=== PATIENT | male | born 1980 | race Two or more races ===

== ENCOUNTER 2021-04-02 15:38 | Inpatient (IN) | payer MEDICAID ==
[~2021-04-02] VITALS: Ht 177.8 cm; Wt 92.4 kg
[~2021-04-02 15:38] MED LIST: ADAL40PE SC; MAGN400T50 PO; PANT20TA2 PO; PANT40TA6 PO
[2021-04-02] MEDS ORDERED: POTA99TA24 PO (16:02)
--- NOTE | 2021-04-02 16:02 | NUR ---
BIB [facility], TRANSFER FROM [facility], SEPTIC SHOCK. HX GI CANCER, COLITIS. PT GOT 2GM MAG, 2L NS, PROTONIX, ZOFRAN, ABX, K AT [place]. PT A&O X 4. NAD. STARTING 2 DAYS AGO. AT BEDSIDE. PT IN BED WITH CONT SPO2, BP Q 30 MIN, SIDE RIALS UP X2, CALL LIGHT IN REACH. PT AGRES TO PLAN OF CARE.
--- NOTE | 2021-04-02 16:14 | NUR ---
LAB IN ROOM PT TO IR
[2021-04-02] MEDS ORDERED: LIDOCAINE 1%, 10ML ONE (16:26)
[2021-04-02] MEDS ORDERED: SODIUM CHLORIDE 0.9% 1,000ML IVBOLUS ONE (16:30)
[2021-04-02 16:41] LABS: MICROSCOPIC INDICATED
[2021-04-02 16:41] LABS: BASOPHILS % (AUTO) 1 % (0-1); EOSINOPHILS % (AUTO) 1 % (1-7); LYMPHOCYTES % (AUTO) 7 % (22-44); MEAN CORPUSCULAR HEMOGLOBIN 33.4 pg (27.5-34.5); MEAN CORPUSCULAR HGB CONC 33.6 g/dL (33.2-36.2); MEAN PLATELET VOLUME 8.1 fL (7.4-10.4); MONOCYTES % (AUTO) 4 % (2-9); NEUTROPHILS % (AUTO) 87 % (42-75); PLATELET COUNT 185 x10^3/uL (130-400); RED BLOOD COUNT 2.46 x10^6/uL (4.38-5.82); RED CELL DISTRIBUTION WIDTH 16.8 % (9.4-14.8)
[2021-04-02 16:43] LABS: ALANINE AMINOTRANSFERASE 24 U/L (12-78); ALBUMIN 1.9 g/dL (3.4-5.0); ANION GAP 8 mmol/L (5-15); CHLORIDE 106 mmol/L (98-107)
[2021-04-02 16:46] LABS: ALKALINE PHOSPHATASE 141 U/L (45-117); BILIRUBIN,TOTAL 4.6 mg/dL (0.2-1.0); CREATININE 0.61 mg/dL (0.7-1.3); TOTAL PROTEIN 7.3 g/dL (6.4-8.2)
--- NOTE | 2021-04-02 16:53 | NUR ---
PT BACK FROM IR
--- NOTE | 2021-04-02 17:36 | NUR ---
Pt ambulated to the restroom with steady gait.
[2021-04-02] MEDS ORDERED: POTASSIUM CHLORIDE 40 MEQ in SODIUM CHLORIDE 0.9% 500 ML IV ONE (18:30)
[2021-04-02] MEDS ORDERED: MELATONIN 5 MG TABLET PO PRN (19:30)
[2021-04-02] MEDS ORDERED: LABETALOL 5MG/ML, 20ML IVPush PRN (19:30)
[2021-04-02] MEDS ORDERED: OXYcodone IR 5MG TABLET PO PRN (19:30)
[2021-04-02] MEDS ORDERED: ONDANSETRON 2MG/ML, 2ML IVPush PRN (19:30)
[2021-04-02] MEDS ORDERED: morphine SULFATE 10 MG/ML, 1ML IVPush PRN (19:30)
[2021-04-02] MEDS ORDERED: ACETAMINOPHEN 325 MG TABLET PO PRN (19:30)
[2021-04-02] MEDS ORDERED: POTASSIUM CHLORIDE 40 MEQ in LACTATED RINGERS 1,000 ML IV SCH (20:00)
[2021-04-02] MEDS ORDERED: PANTOPRAZOLE 40 MG IV ONE (21:01)
[2021-04-02] MEDS ORDERED: CIPROFLOXACIN 500 MG TABLET ONE (21:01)
[2021-04-02] MEDS ORDERED: metroNIDAZOLE 500 MG TABLET ONE (21:01)
[2021-04-02] MEDS: PANTOPRAZOLE 40 MG IV IVPush SCH (21:10)
[2021-04-02] MEDS: CIPROFLOXACIN 500 MG TABLET PO SCH (21:10)
[2021-04-02] MEDS: metroNIDAZOLE 500 MG TABLET PO SCH (21:10)
--- NOTE | 2021-04-02 21:13 | NUR ---
PT AMBULATED WITH STEADY GATE TO BR
--- NOTE | 2021-04-02 21:44 | NUR ---
CLARIFIED WITH DR. HILLIARD ON MEDICAL UNIT ADMIT WITH 2.7K+, OKAY TO ADMIT TO MEDICAL PER .
[2021-04-03 00:10] VITALS: BP 131/80
[2021-04-03] MEDS: metroNIDAZOLE 500 MG TABLET PO SCH ×3 (03:31→23:17)
[2021-04-03 06:50] VITALS: BP 121/71
[2021-04-03 08:03] LABS: OCCULT BLOOD NEGATIVE (NEGATIVE)
[2021-04-03 09:15] LABS: CLOSTRIDIUM DIFFICILE ANTIGEN NEGATIVE; CLOSTRIDIUM DIFFICILE TOXIN NEGATIVE (Negative)
[2021-04-03] MEDS: MULTIVITAMINS/MINERALS TABLET PO SCH (09:36)
[2021-04-03] MEDS: PANTOPRAZOLE 40 MG IV IVPush SCH ×2 (09:36→21:53)
[2021-04-03] MEDS: CIPROFLOXACIN 500 MG TABLET PO SCH ×2 (09:36→21:52)
[2021-04-03 10:22] LABS: CHLORIDE 107 mmol/L (98-107)
[2021-04-03 10:25] LABS: BASOPHILS % (AUTO) 1 % (0-1); EOSINOPHILS % (AUTO) 2 % (1-7); LYMPHOCYTES % (AUTO) 6 % (22-44); MEAN CORPUSCULAR HEMOGLOBIN 33.7 pg (27.5-34.5); MEAN CORPUSCULAR HGB CONC 33.4 g/dL (33.2-36.2); MEAN PLATELET VOLUME 8.3 fL (7.4-10.4); MONOCYTES % (AUTO) 5 % (2-9); NEUTROPHILS % (AUTO) 87 % (42-75); PLATELET COUNT 194 x10^3/uL (130-400); RED BLOOD COUNT 2.64 x10^6/uL (4.38-5.82); RED CELL DISTRIBUTION WIDTH 16.8 % (9.4-14.8)
[2021-04-03 10:30] LABS: ALANINE AMINOTRANSFERASE 21 U/L (12-78); ALBUMIN 1.7 g/dL (3.4-5.0); ALKALINE PHOSPHATASE 133 U/L (45-117); ANION GAP 8 mmol/L (5-15); BILIRUBIN,TOTAL 3.8 mg/dL (0.2-1.0); CALCIUM 7.4 mg/dL (8.5-10.1); CREATININE 0.83 mg/dL (0.7-1.3); TOTAL PROTEIN 7.1 g/dL (6.4-8.2)
[2021-04-03 13:32] VITALS: BP 129/76
[2021-04-03] MEDS: SPIRONOLACTONE 100 MG TABLET PO SCH (17:43)
[2021-04-03 18:29] VITALS: BP 133/84
[2021-04-04 00:12] VITALS: BP 106/61
[2021-04-04 06:26] LABS: BASOPHILS % (AUTO) 1 % (0-1); CHLORIDE 107 mmol/L (98-107); EOSINOPHILS % (AUTO) 2 % (1-7); LYMPHOCYTES % (AUTO) 8 % (22-44); MEAN CORPUSCULAR HEMOGLOBIN 33.2 pg (27.5-34.5); MEAN PLATELET VOLUME 8.2 fL (7.4-10.4); MONOCYTES % (AUTO) 6 % (2-9); NEUTROPHILS % (AUTO) 83 % (42-75); PLATELET COUNT 157 x10^3/uL (130-400); RED CELL DISTRIBUTION WIDTH 16.5 % (9.4-14.8)
[2021-04-04 06:35] LABS: ALANINE AMINOTRANSFERASE 19 U/L (12-78); ALBUMIN 1.6 g/dL (3.4-5.0); ALKALINE PHOSPHATASE 111 U/L (45-117); ANION GAP 9 mmol/L (5-15); BILIRUBIN,TOTAL 3.5 mg/dL (0.2-1.0); CALCIUM 7.2 mg/dL (8.5-10.1); CREATININE 0.65 mg/dL (0.7-1.3); TOTAL PROTEIN 6.3 g/dL (6.4-8.2)
[2021-04-04 07:52] VITALS: BP 129/83
[2021-04-04] MEDS ORDERED: POTASSIUM CHLORIDE 40 MEQ in SODIUM CHLORIDE 0.9% 500 ML IV ONE (08:30)
[2021-04-04] MEDS ORDERED: MAGNESIUM SULFATE PMX 4GM/100M 100 ML IVPB ONE (09:00)
[2021-04-04] MEDS ORDERED: FUROSEMIDE 40 MG/4 ML IV SCH (09:00)
[2021-04-04] MEDS: SPIRONOLACTONE 100 MG TABLET PO SCH (09:02)
[2021-04-04] MEDS: MULTIVITAMINS/MINERALS TABLET PO SCH (09:02)
[2021-04-04] MEDS: CIPROFLOXACIN 500 MG TABLET PO SCH ×2 (09:02→20:34)
[2021-04-04] MEDS: PANTOPRAZOLE 40 MG IV IVPush SCH ×2 (09:03→20:34)
[2021-04-04] MEDS: POTASSIUM CHLORIDE 20 MEQ TAB.ER.PRT PO SCH ×2 (09:18→16:21)
[2021-04-04] MEDS: metroNIDAZOLE 500 MG TABLET PO SCH ×3 (09:19→22:58)
[2021-04-04 13:45] VITALS: BP 143/89
[2021-04-04 18:47] VITALS: BP 128/83
[2021-04-05 00:09] VITALS: BP 124/69
[2021-04-05 06:09] LABS: BASOPHILS % (AUTO) 1 % (0-1); EOSINOPHILS % (AUTO) 2 % (1-7); LYMPHOCYTES % (AUTO) 10 % (22-44); MEAN CORPUSCULAR HEMOGLOBIN 33.5 pg (27.5-34.5); MEAN CORPUSCULAR HGB CONC 33.2 g/dL (33.2-36.2); MEAN PLATELET VOLUME 7.8 fL (7.4-10.4); MONOCYTES % (AUTO) 6 % (2-9); NEUTROPHILS % (AUTO) 81 % (42-75); PLATELET COUNT 181 x10^3/uL (130-400); RED CELL DISTRIBUTION WIDTH 17.1 % (9.4-14.8)
[2021-04-05 06:20] LABS: ALANINE AMINOTRANSFERASE 22 U/L (12-78); ALBUMIN 1.7 g/dL (3.4-5.0); ANION GAP 6 mmol/L (5-15); CALCIUM 7.7 mg/dL (8.5-10.1); CHLORIDE 107 mmol/L (98-107); CREATININE 0.83 mg/dL (0.7-1.3)
[2021-04-05 06:23] LABS: ALKALINE PHOSPHATASE 127 U/L (45-117); BILIRUBIN,TOTAL 2.6 mg/dL (0.2-1.0); TOTAL PROTEIN 7.1 g/dL (6.4-8.2)
[2021-04-05] MEDS: metroNIDAZOLE 500 MG TABLET PO SCH ×3 (06:26→23:06)
[2021-04-05 06:54] VITALS: BP 123/69
[2021-04-05] MEDS ORDERED: POTASSIUM PHOSPHATE 44 MEQ in SODIUM CHLORIDE 0.9% 500 ML IV ONE (08:30)
[2021-04-05] MEDS: PANTOPRAZOLE 40 MG IV IVPush SCH ×2 (09:24→20:14)
[2021-04-05] MEDS: CIPROFLOXACIN 500 MG TABLET PO SCH ×2 (09:25→20:15)
[2021-04-05] MEDS: SPIRONOLACTONE 50 MG TABLET PO SCH (09:25)
[2021-04-05] MEDS: FUROSEMIDE 40 MG TABLET PO SCH (09:25)
[2021-04-05] MEDS: MULTIVITAMINS/MINERALS TABLET PO SCH (09:25)
[2021-04-05] MEDS ORDERED: MULT-484 PO (11:57)
[2021-04-05] MEDS ORDERED: FURO40TA6 PO (11:57)
[2021-04-05] MEDS ORDERED: METR500T PO (11:57)
[2021-04-05] MEDS ORDERED: CIPR500T87 PO (11:57)
[2021-04-05] MEDS ORDERED: SPIR50TA PO (11:57)
[2021-04-05 13:42] VITALS: BP 128/76
[2021-04-05 20:15] VITALS: BP 135/83
[2021-04-06 00:15] VITALS: BP 123/76
[2021-04-06 07:28] VITALS: BP 118/76
[2021-04-06] MEDS: PANTOPRAZOLE 40 MG IV IVPush SCH (07:59)
[2021-04-06] MEDS: MULTIVITAMINS/MINERALS TABLET PO SCH (07:59)
[2021-04-06] MEDS: CIPROFLOXACIN 500 MG TABLET PO SCH (07:59)
[2021-04-06] MEDS: metroNIDAZOLE 500 MG TABLET PO SCH (07:59)
[2021-04-06] MEDS: FUROSEMIDE 40 MG TABLET PO SCH (08:00)
[2021-04-06] MEDS: SPIRONOLACTONE 50 MG TABLET PO SCH (08:00)
== END 2021-04-06 11:56 | disposition home or self-care (01) | DRG 720 ==
LOC: ED 18:29 → EDIP 18:58 → 3N 23:14
PROVIDERS: ADMIT Internal Medicine; ATTEND Internal Medicine
PROC: 0W9G3ZZ Drainage of Peritoneal Cavity, Percutaneous Approach (ICD-10-PCS; principal; 2021-04-02)
DX: A41.9 Sepsis, unspecified organism (principal); D84.9 Immunodeficiency, unspecified; E44.0 Moderate protein-calorie malnutrition; K70.31 Alcoholic cirrhosis of liver with ascites; K92.0 Hematemesis; K52.9 Noninfective gastroenteritis and colitis, unspecified; F10.10 Alcohol abuse, uncomplicated; D64.9 Anemia, unspecified; K21.9 Gastro-esophageal reflux disease without esophagitis; L40.9 Psoriasis, unspecified; E83.42 Hypomagnesemia; E87.6 Hypokalemia; K70.11 Alcoholic hepatitis with ascites; Z68.29 Body mass index [BMI] 29.0-29.9, adult; Z82.49 Family history of ischemic heart disease and other diseases of the circulatory system; Z80.8 Family history of malignant neoplasm of other organs or systems
CPT/HCPCS: 36415; 49083; 80053; 81001; 82042; 82272; 83605; 83615; 83735; 84100; 85014; 85018; 85025; 87040; 87046; 87070; 87086; 87205; 87252; 87324; 89051; 96360; 99285; G0378; J1940; J3480; C9113; J3475; J7030; J7040; J7120